=== PATIENT | male | born 1995 | race Caucasian/White ===

== ENCOUNTER 2018-08-20 23:17 | Emergency (ER) | payer OTHER ==
[2018-08-20] MEDS ORDERED: HYOSCYAMINE SULFATE 0.125 MG TAB PO ONE (23:40)
[2018-08-20] MEDS ORDERED: LIDOCAINE 2% VISCOUS 15 ML UDCUP PO ONE (23:40)
[2018-08-20] MEDS ORDERED: MAG HYDROX/AL HYDROX/SIMETH 30 ML UDCUP PO ONE (23:40)
--- NOTE | 2018-08-20 23:40 | EDPHY ---
H & P Stated Complaint: Chest pain/pressure x 1 hour. Time Seen by Provider: 08/20/18 23:32 HPI/ROS: CHIEF COMPLAINT: Chest pain HISTORY OF PRESENT ILLNESS: 23-year-old healthy male, nonsmoker, no drug use, no cocaine use, arrives via private vehicle complaining of MRSA sternal chest pain which started when he was laying down this evening. Describes it as a dull ache and has now by and large resolved. No radiation of pain. No dyspnea. No syncope or near syncope. No diaphoresis. No recent illness. No nausea or vomiting. No trauma. REVIEW OF SYSTEMS: 10 systems reviewed and negative with the exception of the elements mentioned in the history of present illness PAST MEDICAL & SURGICAL HISTORY: esophageal reflux history. No VTE history. SOCIAL HISTORY: student ministries director in physics. Nonsmoker. No drug use. No cocaine use. FAMILY HISTORY: No family history of VTE, sudden unexplained , premature coronary artery disease. PHYSICAL EXAM (Prior to examination, patient consented to physical exam, hands were washed and my usual and customary physical exam procedures followed) 1) GENERAL: Well-developed, well-nourished, alert and oriented. Appears to be in no acute distress. 2) HEAD: Normocephalic, atraumatic 3) HEENT: Pupils equal, round, reactive to light bilaterally. Sclera anicteric. Nasopharynx, oropharynx, clear, no lesions. Moist Mucous membranes. 4) NECK: Full range of motion, no meningeal signs. 5) LUNGS: Clear auscultation bilaterally, no wheezes, no rhonchi, no retractions. 6) HEART: Regular rate and rhythm, no murmur, no heave, no gallop. 7) ABDOMEN: No guarding, no rebound, no focal tenderness, negative McBurney's, negative Juarez's, negative Rovsing's, negative peritoneal sign, 8) MUSCULOSKELETAL: Moving all extremities, no focal areas of tenderness, no obvious trauma. No peripheral edema or discoloration. 9) BACK: No CVA tenderness, no midline vertebral tenderness, no fluctuance, no step-off, no obvious trauma, no visual or palpable abnormality. 10) SKIN: No rash, no petechiae. 11) Psychiatric: Patient is oriented X 3, there is no agitation. DIFFERENTIAL DIAGNOSIS: in no particular order including but not limited to pneumothorax, pneumomediastinum, esophageal reflux, LA, PE - Personal History Current Tetanus/Diphtheria Vaccine: Yes Current Tetanus Diphtheria and Acellular Pertussis (TDAP): Yes - Medical/Surgical History Hx Asthma: No Hx Chronic Respiratory Disease: No Hx Diabetes: No Hx Cardiac Disease: No Hx Renal Disease: No Hx Cirrhosis: No Hx Alcoholism: No Hx HIV/AIDS: No Hx Splenectomy or Spleen Trauma: No Other PMH: denies - Social History Smoking Status: Never smoked Constitutional: Initial Vital Signs Temperature (C) 36.7 C 08/20/18 23:19 Heart Rate 67 08/20/18 23:19 Respiratory Rate 18 08/20/18 23:19 Blood Pressure 145/99 H 08/20/18 23:19 O2 Sat (%) 99 08/20/18 23:19 O2 Delivery Mode Room Air Allergies/Adverse Reactions: No Known Allergies Allergy (Unverified 08/20/18 23:18) Home Medications: Medication Instructions Recorded Famotidine [Pepcid 20 MG (*)] 20 mg PO BID 14 Days tab 08/20/18 Pantoprazole Sodium [Protonix 40mg 40 mg PO DAILY #30 tab 08/20/18 (RX)] Medical Decision Making - Diagnostics Imaging Results: Chest x-ray interpreted by myself shows no pneumothorax , no pneumomediastinum, no acute pathology. ED Course/Re-evaluation: 12:11 a.m.: Patient has been re-evaluated with serial exams. Discussed the case with secondary supervising physician Dr. Avilez in the ER. Sinus EKG, negative chest x-ray showing no pneumothorax, no pneumomediastinum. Patient was given GI cocktail and notes resolution of symptoms. He is low risk for cardiac disease, low risk for VTE/PE. Negative perc. At this time I do not think that further diagnostic studies are indicated I think the patient can be safely discharged. Definitely if he develops new or worsening symptoms I recommend he seek immediate medical attention. He feels comfortable with this plan. Patient feels comfortable being discharged. All questions and concerns addressed by myself. Patient given my usual and customary discharge precautions and instructions regarding their clinical impression. Care of patient under supervision of secondary supervising physician Dr Avilez with whom I discussed case. - Data Points Medications Given: Discontinued Medications Al Hydroxide/Mg Hydroxide (Maalox Susp) 30 ml PO ONCE ONE Stop: 08/20/18 23:41 Last Admin: 08/20/18 23:47 Dose: 30 ml Hyoscyamine Sulfate (Levsin, Hyomax-Sl) 0.25 mg PO ONCE ONE Stop: 08/20/18 23:41 Last Admin: 08/20/18 23:47 Dose: 0.25 mg Lidocaine (Lidocaine 2% Viscous) 15 ml PO ONCE ONE Stop: 08/20/18 23:41 Last Admin: 08/20/18 23:47 Dose: 15 ml Departure - Departure Disposition: Home, Routine, Self-Care Clinical Impression: Chest pain Condition: Good Instructions: Chest Pain (ED) Additional Instructions: Seek medical attention if you develop new or worsening chest pain, if you develop new or worsening shortness of breath, or any other symptoms that concern you. Referrals: [facility],. [Clinic] - As per Instructions Prescriptions: Famotidine [Pepcid 20 MG (*)] 20 mg PO BID 14 Days tab Pantoprazole Sodium [Protonix 40mg (RX)] 40 mg PO DAILY #30 tab
[2018-08-21 00:21] VITALS: BP 129/87
--- NOTE | 2018-08-22 04:00 | CPEKG ---
Test Reason : OPEN Blood Pressure : / mmHG Vent. Rate : 058 BPM Atrial Rate : 060 BPM P-R Int : 152 ms QRS Dur : 084 ms QT Int : 405 ms P-R-T Axes : 046 053 049 degrees QTc Int : 398 ms Sinus rhythm Atrial premature complex ST elev, probable normal early repol pattern Confirmed by Zoran Avilez ([id number]) on 08/22/2018 3:59:54 AM Referred By: Zoran Avilez Confirmed By:Zoran Avilez
== END 2018-08-21 00:21 | disposition home or self-care (01) ==
DX: R07.9 Chest pain, unspecified (principal)